=== PATIENT | male | born 1960 | race Native Hawaiian/Other Pacific Islander ===

== ENCOUNTER 2020-03-15 01:40 | Emergency (ER) | payer OTHER ==
[~2020-03-15] VITALS: Ht 182.9 cm; Wt 117.9 kg
[2020-03-15 02:59] VITALS: BP 179/82; TEMP 98
== END 2020-03-15 03:03 | disposition home or self-care (01) ==
LOC: ED 01:40
PROC: 0T9B70Z Drainage of Bladder with Drainage Device, Via Natural or Artificial Opening (ICD-10-PCS; principal; 2020-03-15)
DX: R33.8 Other retention of urine (principal)
CPT/HCPCS: 51702; 81000; 99282

== ENCOUNTER 2022-03-06 09:12 | Outpatient (CLI) | payer BC | END 2022-03-06 20:50 | disposition home or self-care (01) | LOC: CT 09:12 | PROVIDERS: ATTEND Internal Medicine | DX: I73.9 Peripheral vascular disease, unspecified (principal); E11.9 Type 2 diabetes mellitus without complications | CPT/HCPCS: 36415; 82565; 84520 ==